=== PATIENT | female | born 1985 | race Caucasian/White ===

== ENCOUNTER 2021-01-01 02:52 | Outpatient (CLI) | payer BC, SELFPAY ==
[2021-01-01 15:25] LABS: Kit/Specimen SENT
[2021-01-01 15:30] LABS: Abs Immature Grans 0.04 10^3/uL (0.0-0.06); Absolute Basophil Count 0.02 10^3/uL (0.0-0.2); Absolute Eosinophil Count 0.12 10^3/uL (0.0-0.7); Absolute Lymphocyte Count 1.63 10^3/uL (1.2-3.4); Absolute Monocyte Count 0.53 10^3/uL (0.1-0.8); Absolute Neutrophil Count 7.31 10^3/uL (1.2-6.7); Basophils % 0.2; Eosinophils % 1.2; HCT 37.5 % (36.0-46.0); HGB 12.3 g/dL (11.2-15.7); Immature Grans % 0.4; Lymphocytes % 16.9; MCH 29.5 pg (27.0-33.0); MCHC 32.8 % (32.0-36.0); MCV 89.9 fL (80-95); MPV 11.5 fL (8.0-11.0); Monocytes % 5.5; Neutrophils % 75.8; Nucleated RBC 0 %; Platelet Count 258 10^3/uL (130-400); RBC 4.17 10^6/uL (3.93-5.22); RDW 13.1 % (11.7-14.6); WBC 9.65 10^3/uL (4.4-10.8)
[2021-01-01 16:12] LABS: TSH (W/Ref FT4) 1.37 uIU/mL (0.36-3.74)
[2021-01-02 10:05] LABS: HIV-1/2 Ag & Ab Screen Negative (Negative)
[2021-01-02 10:18] LABS: Hepatitis C Ab w Rflx HCV PCR Negative (Negative)
[2021-01-02 11:06] LABS: Hepatitis B Surface Ag Negative (Negative)
[2021-01-02 13:51] LABS: Varicella IgG Antibody Positive (See Note)
[2021-01-02 13:53] LABS: Rubella IgG Ab (UVM) Positive (See Note)
[2021-01-03 12:34] LABS: Syphilis Total Ab w/Reflex Nonreactive (Nonreactive)
== END 2021-01-01 02:53 | disposition home or self-care (01) ==
LOC: LBO 02:52
PROVIDERS: Visit Provider Advanced Practice Midwife
DX: Z34.91 Encounter for supervision of normal pregnancy, unspecified, first trimester (principal); Z11.4 Encounter for screening for human immunodeficiency virus [HIV]; Z11.59 Encounter for screening for other viral diseases; Z01.84 Encounter for antibody response examination
CPT/HCPCS: 86787; 86803; 86850; 86900; 86901; 87340; 87389; 84443; 85025; 86762; 86780

== ENCOUNTER 2021-01-01 16:00 | Outpatient (REF) | payer BC, SELFPAY ==
[2021-01-01 17:28] LABS: *AMPHETAMINES SCREEN URINE Negative (Negative); *BARBITURATES SCREEN URINE Negative (Negative); *BENZODIAZEPINES SCREEN URINE Negative (Negative); Cannabinoids THC Negative (Negative); Cocaine Screen,Urine Negative (Negative); METHADONE URINE SCREEN Negative (Negative); OPIATES URINE SCREEN Negative (Negative)
[2021-01-01 17:33] LABS: Tricyclic Antidepressants Negative (Negative)
[2021-01-08 08:41] LABS: Buprenorphine Negative ng/mL (Cutoff: 5.0); Norbuprenorphine Negative ng/mL (Cutoff: 2.5)
== END 2021-01-01 16:01 | disposition home or self-care (01) ==
LOC: LBN 16:00
PROVIDERS: Visit Provider Advanced Practice Midwife
DX: Z34.91 Encounter for supervision of normal pregnancy, unspecified, first trimester (principal)
CPT/HCPCS: 80307; 87086

== ENCOUNTER 2021-01-07 02:20 | Outpatient (CLI) | payer BC, SELFPAY ==
[2021-01-07 12:06] LABS: Glucose,1 Hr (Glucola) 111 mg/dL (80-140)
== END 2021-01-07 02:21 | disposition home or self-care (01) ==
LOC: LBO 02:20
PROVIDERS: Visit Provider Advanced Practice Midwife
DX: Z34.91 Encounter for supervision of normal pregnancy, unspecified, first trimester (principal); Z3A.11 11 weeks gestation of pregnancy
CPT/HCPCS: 36415; 82950

== ENCOUNTER 2021-01-29 16:19 | Outpatient (REF) | payer BC, SELFPAY ==
[2021-02-02 14:05] LABS: Chlamydia Result Negative (Negative); GC Result Negative (Negative)
== END 2021-01-29 16:20 | disposition home or self-care (01) ==
LOC: LBN 16:19
PROVIDERS: Visit Provider Obstetrics & Gynecology
DX: Z34.91 Encounter for supervision of normal pregnancy, unspecified, first trimester (principal); Z11.3 Encounter for screening for infections with a predominantly sexual mode of transmission
CPT/HCPCS: 87491; 87591

== ENCOUNTER 2022-05-10 13:25 | Emergency (ER) | payer BC, SELFPAY ==
[2022-05-10 13:29] VITALS: BP 144/95; PULSE 81; RESP 18; TEMP 36.5; O2SAT 99
[2022-05-10 15:10] VITALS: BP 117/81; PULSE 83; RESP 16; TEMP 36.7; O2SAT 97
--- NOTE | 2022-05-10 16:30 | DI.RAD_ITS ---
Exam(s) XR RIBS RT W PA LAT CHEST EXAM: XR RIBS RT W PA LAT CHEST CLINICAL HISTORY: Right rib pain TECHNIQUE: 2D digital imaging was performed. COMPARISON: No exams were available for comparison FINDINGS: RIBS 3 VIEWS-right There are no obvious acute rib fractures evident. No lytic rib lesions identified. CXR- 2 VIEWS: No lung contusion or pneumothorax. There is no pleural effusion evident. Heart size is normal and there is no significant mediastinal widening. IMPRESSION: 1. No obvious rib fractures evident. Also no significant rib lesions. 2. No ipsilateral lung nor pleural abnormality evident. No pneumothorax. DATA REPOSITORY: RADIATION DOSE DELIVERED:
--- NOTE | 2022-05-10 16:41 | ED.GENADUL_ITS ---
Discharge Plan Disposition Patient Disposition: HOME Condition: Stable Discharge Details Clinical Impression: Musculoskeletal strain Primary Care Provider: Starr,Local ED Provider: Aydee Yap Home Meds and New Rx's Prescriptions: New cyclobenzaprine 10 mg tablet 10 mg PO TID PRN (Reason: muscle spasm) Qty: 10 0RF Discharge Instructions Instructions: Lower Back Exercises (ED), Thoracic Back Strain (ED) Additional Instructions: X-rays of your ribs and chest are within normal limits. I do suspect that you have pulled a muscle or have a muscle strain when he fell and exacerbated after sneezing today. Please apply ice and alternate with heat. Please take Tylenol or Ibuprofen with food every 4-6 hours as needed for pain and swelling. Please take the muscle relaxers as directed these may make you sleepy. Follow up with primary care provider in 3-5 days. Return to ED sooner if any worsening or concerns. Increase oral fluids. Medical Decision Making 36-year-old female presents to the ER with a chief complaint of right rib and flank pain which exacerbated and got worse today. After sneezing. Patient reports that 3 weeks ago she fell down approximately 6 stairs and has had a dull ache since then. Right side rib series ordered, urinalysis urine test Flexeril and Tylenol. X-ray negative for any acute abnormality chest shows no pleural effusion or any abnormality. I do suspect musculoskeletal strain we will send patient home with Flexeril. This text was generated using [employer] dictation system, please disregard any oddities of phrase or misspellings. Imaging Data Radiologic Study: Imaging: X-Ray Radiologist's impression: COMPARISON: No relevant prior studies available. FINDINGS: Lungs: Unremarkable. No consolidation. Pleural spaces: Unremarkable. No pleural effusion. No pneumothorax. Heart/Mediastinum: Unremarkable. No cardiomegaly. Bones/joints: Unremarkable. IMPRESSION: No acute findings. Thank you for allowing us to participate in the care of your patient. Dictated and Authenticated by: Bernadine Rae MD [facility] General Mode of arrival: ambulatory . Date/Time Provider Initiated Documentation: 05/10/22 15:47 . Limitations to Documentation: no limitations . Information obtained by: patient, RN notes reviewed and old records reviewed . HPI Narrative: 36-year-old female presents to the ER with a chief complaint of right rib and flank pain which exacerbated and got worse today. After sneezing. Patient reports that 3 weeks ago she fell down approximately 6 stairs and has had a dull ache since then. She has not taken any Tylenol or ibuprofen since yesterday. She denies any fever chills burning with urination blood in her urine or any other associated symptoms. She denies any possibility of . Related Data Home Medications Medication Instructions Recorded Confirmed cyclobenzaprine 10 mg tablet 10 mg PO TID PRN muscle spasm #10 05/10/22 tabs Previous Rx's Medication Instructions Recorded cyclobenzaprine 10 mg tablet 10 mg PO TID PRN muscle spasm #10 05/10/22 tabs Allergies Allergy/AdvReac Type Severity Reaction Status Date / Time cat dander Allergy Verified 05/10/22 13:32 General Stated Complaint: Nk/Back Pain DAMI: 3 Review of Systems All systems reviewed & are unremarkable except as noted in HPI and below PFSH All Active Problems Musculoskeletal strain (Acute) BMI 36.0-36.9,adult (Acute) Uterine scar from previous delivery, antepartum (Acute) Nausea and vomiting in (Acute) 12/08/2020 OTC not effective. Initiated Reglan 10 mg every 6 hours Advanced maternal age (AMA) in (Acute) Positive test (Acute) Previous section (Chronic) X 4 Social History Smoking/Tobacco Use Status: Never Smoking risk assessment performed?: Yes Alcohol Intake: never Substance use type: does not use Do you feel safe at home: Yes Do you feel safe in your relationship?: Yes Additional Social history: Verified x2 given mechanism of injury History History 7 Para 4 Hx # Term Pregnancies 4 Multiple births 0 Hx # Pregnancies 0 Ectopic pregnancies 0 AB induced 0 Hx Number of Living Children 4 AB spontaneous 2 Past Pregnancies Del. Date GA/Weeks # Preg Succ Route Wgt Sex Labor Lgth Anesth esia Location [facility] 07/16/11 40 No 3345.244 g Female [facility], [place] 02/10/14 39 No 3628.739 g Female [facility], [place] 05/10/16 39 No 3770.487 g Male [facility] 04/10/19 39 No 4082.331 g Female Cedric silvestre Paez, AJ Delivery Date: 07/16/11 Last Updated by: Dafne Sheriff Scheduled C/S for presumed macrosomia, was stoney when baby was not large. Delivery Date: 02/10/14 Last Updated by: Dafne Sheriff Scheduled C/S, was told she was not a candidate for TOLAC. Delivery Date: 05/10/16 Last Updated by: Dafne Sheriff Scheduled C/S Delivery Date: 04/10/19 Last Updated by: Dafne Sheriff Scheduled C/S, felt she was not properly anesthetized during surgery. Exam Narrative Exam Narrative: Constitutional: Alert and oriented x3. Appears stated age. Normal body habitus. Head: Normocephalic, no trauma. Eyes: Pupils PERRL, Red reflex noted, EOM's intact. Eyelids symmetrical without lesions, discharge, or swelling. ENT: Bilateral TM's WNL, External ear normal to inspection, no mastoid TTP, swelling, or erythema, Nasal turbinates WNL, no nasal discharge. Normal dentition, Posterior pharynx WNL, no exudate. Chest: RRR, Normal S1, S2, distal pulses intact. Tenderness noted to the right rib cage with palpation Resp: Lungs clear to auscultation bilaterally, no wheezes, rales, or rhonchi. Abdomen: Soft, non-distended, Normoactive bowel sounds all 4 quads. Musculoskeletal: Normal gait, 5/5 strength to all four extremities. Skin: No suspicious rashes or lesions. Capillary refill less than 2 sec. Neurologic: Cranial nerves II-XII intact. Alert and oriented x 3. Motor: No deficits noted. Sensory: Intact bilaterally all 4 extremities. Reflexes: DTR's intact bilaterally.. Hematologic/Lymphatic: No ecchymosis, no lymphadenopathy. Course Vital Signs Vital signs: Vital Signs Temperature 36.5 C 05/10/22 13:29 Pulse 81 05/10/22 13:29 Respiratory Rate 18 05/10/22 13:29 Blood Pressure 144/95 H 05/10/22 13:29 Pulse Oximetry 99 05/10/22 13:29 Temperature 36.7 C 05/10/22 15:10 Temperature Source Tympanic 05/10/22 15:10 Pulse 83 05/10/22 15:10 Respiratory Rate 16 05/10/22 15:10 Respiratory Effort 05/10/22 15:36 Respiratory Depth Normal 05/10/22 15:36 Respiratory Pattern Normal 05/10/22 15:36 Blood Pressure 117/81 05/10/22 15:10 Blood Pressure Position Sitting 05/10/22 13:29 Pulse Oximetry 97 05/10/22 15:10 Oxygen Delivery Method Room Air 05/10/22 15:10 Oxygen Flow Rate 0 05/10/22 15:10 Pain Level 8 05/10/22 13:33
[2022-05-10] MEDS: Acetaminophen 325 MG TAB 650 MG PO (17:20)
[2022-05-10] MEDS: Cyclobenzaprine 10 MG TAB PO (17:20)
--- NOTE | 2022-05-10 17:58 | DI.VRAD_ITS ---
PROCEDURE INFORMATION: Exam: XR Right Ribs Exam date and time: 05/10/2022 5:37 PM Age: 36 years old Clinical indication: Other: Right rib pain TECHNIQUE: Imaging protocol: Radiologic exam of the Right ribs. Views: 2 views. COMPARISON: No relevant prior studies available. FINDINGS: Bones/joints: Normal. Soft tissues: Normal. IMPRESSION: No acute findings. PROCEDURE INFORMATION: Exam: XR Chest Exam date and time: 05/10/2022 5:37 PM Age: 36 years old Clinical indication: Other: Right rib pain TECHNIQUE: Imaging protocol: Radiologic exam of the chest. Views: 2 views. COMPARISON: No relevant prior studies available. FINDINGS: Lungs: Unremarkable. No consolidation. Pleural spaces: Unremarkable. No pleural effusion. No pneumothorax. Heart/Mediastinum: Unremarkable. No cardiomegaly. Bones/joints: Unremarkable. IMPRESSION: No acute findings. Dictated and Authenticated by: Bernadine aRe MD. Ordering:SHARON Bajwa MD
[2022-05-10 18:18] LABS: Bilirubin Negative (Negative); Blood Trace-intact (Negative); Clarity Sl Cloudy (Clear); Glucose Negative (Negative); Ketones Negative (Negative); Leukocyte Esterase Negative (Negative); Nitrite Negative (Negative); Specific Gravity >= 1.030 (1.005-1.025); Urobilinogen 0.2 EU/dL (Up TO 0.2)
[2022-05-10 18:30] LABS: Bacteria Moderate HPF (Negative); C & S Indicated? No/Sq. Contamination; Casts Negative LPF (Negative); Crystals Negative HPF (Negative); Epithelial Cells Many HPF (Negative); Mucus Trace (Negative); WBC 0-2 HPF (0-5)
[2022-05-10] MEDS: Cyclobenzaprine 10 MG TAB, 3 TABS/BTL PO (18:30)
== END 2022-05-10 18:32 | disposition home or self-care (01) ==
PROVIDERS: Emergency Provider Registered Nurse Emergency
DX: S39.012A Strain of muscle, fascia and tendon of lower back, initial encounter (principal); W10.8XXA Fall (on) (from) other stairs and steps, initial encounter; R07.89 Other chest pain
CPT/HCPCS: 81025; 99283; 71046; 71100; 81003; 81015